=== PATIENT | male | born 1975 | race Hispanic/Latino ===

== ENCOUNTER 2022-03-14 09:59 | Emergency (ER) | payer SELFPAY ==
[2022-03-14 10:15] VITALS: BP 119/77; PULSE 65; RESP 20; TEMP 36.1; O2SAT 99
[2022-03-14] MEDS: IBUPROFEN 400 MG TABLET 800 MG PO (10:57)
--- NOTE | 2022-03-14 10:59 | ED.WOUNDLAC ---
HPI - Wound/Laceration General Chief Complaint: Wound/Laceration Stated Complaint: Laceration left hand Time Seen by Provider: 03/14/22 11:00 Source: patient Mode of arrival: ambulatory Limitations: no limitations History of Present Illness HPI narrative: 46-year-old male presented for complaint of a laceration to the left thumb, palmar aspect. Injury today. He states he cut it while slicing meat horizontally, struck a frozen area, and the knife slipped resulting in slicing his hand. He did not clean it prior to arrival, he has applied pressure. He is not taking anything for pain. He endorses he is up-to-date on tetanus. Denies numbness, tingling, weakness or decreased range of motion to the hand or fingers. Related Data Allergies Allergy/AdvReac Type Severity Reaction Status Date / Time No Known Allergies Allergy Verified 03/14/22 10:33 Review of Systems Review of Systems: CONSTITUTIONAL: Denies body aches, fever, chills, or sweats. EYES: Denies visual changes, redness, or discharge. ENT: Denies rhinorrhea, congestion CARDIOVASCULAR: Denies chest pain, palpitations, or edema. RESPIRATORY: Denies cough or dyspnea. GASTROINTESTINAL: Denies abdominal pain, nausea, vomiting, or diarrhea. SKIN: left thumb laceration MUSCULOSKELETAL: Denies back pain, joint pain, or myalgia. NEUROLOGIC: Denies headache, numbness, tingling, or weakness. PMFSH Comments At time of signature, I have reviewed and agree with nursing past medical, surgical, social and family history unless otherwise noted. Please see nursing chart for further information. There is no relevant family history pertinent to the presenting complaint Exam Narrative: GENERAL: Well-appearing HEAD: Normocephalic, atraumatic. EYES: conjunctivae clear, and EOMI. ENT: Mucous membranes moist. Oropharynx without edema, erythema or lesions. NECK: Supple. No lymphadenopathy CHEST: Clear to auscultation. HEART: Regular rate and rhythm. SKIN: Warm, dry. 4cm linear lac to left thumb base palmar aspect, edges unapproximated, moderate bleeding NEURO: Alert and oriented x3. Course Course Emergency Course: Patient is aware of diagnosis, understands and agrees to treatment plan. Anticipatory guidance given. Patient agrees to follow-up as directed and is aware of reasons to seek care at the emergency department. Portions of this record may have been created with voice recognition software Level of Care: Express Care Visit Vital Signs Vital signs: Vital Signs Temperature 96.9 F L 03/14/22 10:15 Pulse Rate 65 03/14/22 10:15 Respiratory Rate 20 03/14/22 10:15 Blood Pressure 119/77 03/14/22 10:15 Pulse Oximetry 99 03/14/22 10:15 Oxygen Delivery Room Air 03/14/22 10:15 Temperature 96.9 F L 03/14/22 10:15 Pulse Rate 65 03/14/22 10:15 Respiratory Rate 20 03/14/22 10:15 Blood Pressure 119/77 03/14/22 10:15 Pulse Oximetry 99 03/14/22 10:15 Oxygen Delivery Room Air 03/14/22 10:15 Reviewed Procedures Laceration left thumb: Size (cm): 4 Description: linear and clean Depth: simple, single layer Local Anesthetic: lidocaine 1% Amount of anesthesia used (mL): 4 Pre-repair: wound explored and irrigated ====== Skin Level ====== Skin layer closed with: nylon Size (cm): 5-0 Number of sutures: 8 Technique: simple, interrupted ====== Subcutaneous Layer ====== ====== Muscle Layer ====== ====== Tendon Layer ====== Dressing: Verbal consent obtained for laceration repair. Risk and benefits explained and patient voiced understanding. Site cleansed with Primaderm and instilled lidocaine into the wound edges. Area was prepped and draped using sterile technique. A 5 -0 suture was used to place 8 interrupted sutures bringing the wound edges together. Edges well approximated, bleeding stopped. Patient tolerated procedure well. Sterile dressing
--- NOTE | 2022-03-14 11:15 | PC.NURSE ---
1101 coiler at bedside to do sutures.
== END 2022-03-14 11:55 | disposition home or self-care (01) ==
PROVIDERS: Emergency Provider Nurse Practitioner Family
DX: S61.012A Laceration without foreign body of left thumb without damage to nail, initial encounter (principal); W26.0XXA Contact with knife, initial encounter
CPT/HCPCS: 12002; 99203; A9270; G0463